=== PATIENT | male | born 1945 | race Caucasian/White ===

== ENCOUNTER 2020-03-30 10:23 | Emergency (ER) | payer OTHER ==
[~2020-03-30] VITALS: Ht 165.1 cm; Wt 71.2 kg
[2020-03-30] MEDS ORDERED: ATORVASTATIN CA10 MG (10:55)
[2020-03-30] MEDS ORDERED: DILTIAZEM ER180 M2 (10:55)
[2020-03-30] MEDS ORDERED: RAMIPRIL5 MG (10:55)
== END 2020-03-30 12:40 | disposition home or self-care (01) ==
LOC: ER 10:23
DX: S81.821A Laceration with foreign body, right lower leg, initial encounter (principal); W45.8XXA Other foreign body or object entering through skin, initial encounter; Y93.89 Activity, other specified; Y92.89 Other specified places as the place of occurrence of the external cause; Y99.8 Other external cause status

== ENCOUNTER 2022-05-13 15:33 | Emergency (ER) | payer OTHER ==
[~2022-05-13] VITALS: Ht 167.6 cm; Wt 72.6 kg
[~2022-05-13 15:33] MED LIST: ATORVASTATIN CA10 MG; DILTIAZEM ER180 M2; RAMIPRIL5 MG
== END 2022-05-13 18:48 | disposition designated cancer center or children's hospital (05) ==
LOC: ER 15:33
DX: I63.9 Cerebral infarction, unspecified (principal); R47.01 Aphasia; I10 Essential (primary) hypertension; Z20.822 Contact with and (suspected) exposure to COVID-19